=== PATIENT | male | born 1965 | race Caucasian/White ===

== ENCOUNTER 2023-09-21 10:15 | Outpatient (CLI) | payer BC, SELFPAY | END 2023-09-21 10:16 | disposition home or self-care (01) | LOC: NFLDREF 09-22 11:18 | PROVIDERS: PCP Physician Assistant Medical; Referring Provider Physician Assistant Medical; Visit Provider Physician Assistant Medical | DX: Z00.00 Encounter for general adult medical examination without abnormal findings (principal); E11.42 Type 2 diabetes mellitus with diabetic polyneuropathy; G62.9 Polyneuropathy, unspecified; F41.9 Anxiety disorder, unspecified | CPT/HCPCS: 80053; 80061; 82043; 82306; 82570; 82607; 84443 ==

== ENCOUNTER 2024-07-17 10:41 | Outpatient (CLI) | payer BC, SELFPAY ==
--- NOTE | 2024-07-17 11:30 | CRLHL7_ITS ---
For Patients: As a result of the Century Cures Act, medical imaging exams and procedure reports are released immediately into your electronic medical record. You may view this report before your referring provider. If you have questions, please contact your health care provider. CLINICAL HISTORY: Epigastric pain COMPARISON: none TECHNIQUE: Real time miller scale imaging and color Doppler analysis was performed of the abdomen. FINDINGS: Liver measures 18.0 cm and has diffusely coarsened/increased echotexture. The spleen measures up to 12.7 cm. The pancreas appears normal. The proximal abdominal aorta and IVC appear normal. There is no evidence of ascites. The gallbladder is of normal size and there is no evidence of sludge or stones within the gallbladder lumen. The gallbladder wall measures 2 mm in thickness. The common bile duct measures 4 mm in size within the leann hepatis. Possible isoechoic lesion within the right kidney measuring 2.9 cm. The right kidney measures 12.1 cm in length and the left kidney measures 13.6 cm. There is no evidence of a renal calculus or hydronephrosis. IMPRESSION: Hepatosplenomegaly with hepatic steatosis. No ascites. Normal gallbladder. Possible isoechoic lesion versus dromedary hump right kidney. CT recommended. Dictated by Yasir Hanson MD @ 07/17/2024 12:00:16 PM (Electronically Signed)
== END 2024-07-17 10:42 | disposition home or self-care (01) ==
LOC: US 10:42
PROVIDERS: PCP Physician Assistant Medical; Visit Provider Physician Assistant Medical
DX: R10.13 Epigastric pain (principal); R16.0 Hepatomegaly, not elsewhere classified; K76.0 Fatty (change of) liver, not elsewhere classified
CPT/HCPCS: 76700

== ENCOUNTER 2024-07-26 09:30 | Outpatient (CLI) | payer BC, SELFPAY ==
--- NOTE | 2024-07-26 10:00 | CRLHL7_ITS ---
For Patients: As a result of the Century Cures Act, medical imaging exams and procedure reports are released immediately into your electronic medical record. You may view this report before your referring provider. If you have questions, please contact your health care provider. INDICATION: RIGHT KIDNEY NODULE SEEN ON 07/17/24 US, HAS TO URINATE FREQUENTLY AT NIGHT TECHNIQUE: CT abdomen renal protocol without and with 121 cc Isovue 370 intravenous contrast. Contrast images were obtained in the nephrographic and delayed phases. COMPARISON: Ultrasound 07/17/2024 FINDINGS: KIDNEYS: The unenhanced images demonstrate small bilateral renal calculi which measure up to 5 millimeters. The kidneys are normal in caliber and demonstrate normal uptake and excretion of IV contrast. No solid masses. Incidental simple cyst left kidney measures 2.4 cm. Small exophytic proteinaceous or hemorrhagic cyst anterior aspect upper pole right kidney measures 5.6 millimeters. The renal collecting systems and visualized ureters are symmetrical, normal in caliber, and without evidence of mass or filling defect. OTHER: Lung bases are clear. Liver is enlarged with diffuse low attenuation. Small layering stones in the gallbladder. Normal pancreas. No splenic lesion. Adrenal glands normal. No bowel obstruction. Mild incidental mesenteric panniculitis. Multilevel discogenic spurring. IMPRESSION: 1. Nonobstructing renal calculi bilaterally measuring up to 5 millimeters. 2. Benign renal cysts bilaterally. No suspicious mass. 3. Hepatomegaly with diffuse hepatic steatosis. 4. Mild cholelithiasis. Please note that all CT scans at this facility use dose modulation, iterative reconstruction, and/or weight-based dosing when appropriate to reduce radiation dose to as low as reasonably achievable. Dictated by Yasir Hanson MD @ 07/26/2024 12:43:45 PM (Electronically Signed)
[2024-07-26 10:03] LABS: Creatinine* 0.7 mg/dL (0.5-1.5); Estimated Glomerular Filt Rate 107 ml/min
== END 2024-07-26 09:31 | disposition home or self-care (01) ==
LOC: CT 09:30
PROVIDERS: PCP Physician Assistant Medical; Visit Provider Physician Assistant Medical
DX: N28.89 Other specified disorders of kidney and ureter (principal); N20.0 Calculus of kidney; N28.1 Cyst of kidney, acquired; R16.0 Hepatomegaly, not elsewhere classified; K76.0 Fatty (change of) liver, not elsewhere classified; K80.20 Calculus of gallbladder without cholecystitis without obstruction
CPT/HCPCS: 36415; 74170; 82565; Q9967